=== PATIENT | female | born 1955 | race Caucasian/White ===

== ENCOUNTER 2018-12-07 06:36 | Day surgery (SDC) | payer MEDICAID ==
[~2018-12-07] VITALS: Ht 154.9 cm; Wt 65.0 kg
[2018-12-07] VITALS (21 sets, daily range): BP systolic 134–167; BP diastolic 53–92; PULSE 60–82; RESP 12–25; Ht 154.9 cm; Wt 65.0 kg
[~2018-12-07 06:36] MED LIST: BENA20TA4 PO; CEFAZOLIN 2 GM/50 ML (PMX) 50 ML IVPB SCH; METF-849 PO; SIMV20TA PO; SOD CHLORIDE 0.9% 1,000 ML IV SCH
[2018-12-07] MEDS ORDERED: PROPOFOL 20 ML ONE (13:21)
[2018-12-07] MEDS ORDERED: LIDOCAINE 2% (SDV) 5 ML INJ ONE (13:21)
[2018-12-07] MEDS ORDERED: MIDAZOLAM 1 MG/ML 2 ML INJ ONE (13:21)
[2018-12-07] MEDS ORDERED: FENTAnyl 50 MCG/ML VIAL IV PRN ×2 (13:30)
[2018-12-07] MEDS ORDERED: hydrALAzine 20 MG INJ IV PRN (13:30)
[2018-12-07] MEDS ORDERED: ONDANSETRON 4 MG INJ IV PRN (13:30)
[2018-12-07] MEDS ORDERED: EPHEDrine 25 MG/5 ML SYG IV PRN (13:30)
[2018-12-07] MEDS ORDERED: MEPERIDINE 25 MG INJ IV PRN (13:30)
[2018-12-07] MEDS ORDERED: DIPHENHYDRAMINE 50 MG INJ IV PRN (13:30)
[2018-12-07] MEDS ORDERED: HYDROmorphONE 1 MG/5 ML IV SYRINGE IV PRN ×2 (13:30)
[2018-12-07] MEDS ORDERED: LABETALOL HCL 20MG INJ IV PRN (13:30)
[2018-12-07] MEDS ORDERED: FENTAnyl 50 MCG/ML VIAL ONE (13:31)
[2018-12-07] MEDS ORDERED: CEFAZOLIN 1 GM INJ ONE (13:35)
[2018-12-07] MEDS ORDERED: FAMOTIDINE 20 MG INJ ONE (13:36)
[2018-12-07] MEDS ORDERED: ONDANSETRON 4 MG INJ ONE (13:36)
[2018-12-07] MEDS ORDERED: DEXAMETHASONE 4 MG/ML 5 ML INJ ONE (13:36)
[2018-12-07] MEDS ORDERED: EPHEDrine 25 MG/5 ML SYG ONE (13:51)
[2018-12-07] MEDS ORDERED: HYDROCODONE/APAP (7.5/325) TAB PO PRN (14:30)
[2018-12-07] MEDS: OXYCODONE/ACETAMINOPHEN (5/325) TAB PO PRN ×2 (14:47→14:48)
[2018-12-07] MEDS: HYDROmorphONE 1 MG/5 ML IV SYRINGE IV PRN ×2 (14:47→15:00)
[2018-12-07] MEDS: FENTAnyl 50 MCG/ML VIAL IV PRN ×2 (14:47→14:59)
== END 2018-12-07 16:20 | disposition home or self-care (01) ==
LOC: SDS 06:36
PROVIDERS: ATTEND Surgery Surgical Oncology
DX: D24.2 Benign neoplasm of left breast (principal); I10 Essential (primary) hypertension; E78.5 Hyperlipidemia, unspecified; E11.9 Type 2 diabetes mellitus without complications
CPT/HCPCS: 19125; 82962; 88307; J0690; J1100; J1170; J2250; J2405; J3010; Z7512; Z7610